=== PATIENT | female | born 1950 | race Caucasian/White ===

== ENCOUNTER 2017-01-27 06:16 | Day surgery (SDC) | payer MEDICARE, OTHER ==
[~2017-01-27] VITALS: Ht 142.2 cm; Wt 67.5 kg
[~2017-01-27 06:16] MED LIST: ALEN70TA48 PO; BENZ1TAB10 PO; DOCU-275 PO; FERR-89 PO; LAMO100 PO; LEVO75 PO; MULT-1192 PO; OMEP20 PO; RISP1 PO; RISP4 PO; TOLT2TAB2 PO
[2017-01-27] MEDS ORDERED: RINGERS SOLUTION,LACTATED 1,000 ML IV ONE ×2 (06:38→07:00)
[2017-01-27] MEDS ORDERED: MIDAZOLAM HCL 5 MG/ML VIAL ONE (07:27)
[2017-01-27] MEDS ORDERED: KETAMINE HCL 50 MG/ML 10 ML VIAL ONE (07:28)
[2017-01-27] MEDS ORDERED: SUCCINYLCHOLINE CHLORIDE 20 MG/ML 10 ML VIAL ONE (07:29)
[2017-01-27 07:52] LABS: BASOPHILS % (AUTO) 0.5 % (0.0-2.0); HEMATOCRIT 35.3 % (36-46); HEMOGLOBIN 11.7 g/dL (12.0-16.0); LYMPHOCYTES % (AUTO) 21.8 % (22.0-44.0); MEAN CORPUSCULAR HEMOGLOBIN 29.3 pg (26.0-34.0); MEAN CORPUSCULAR HGB CONC 33.2 G/dL (31.0-37.0); MEAN CORPUSCULAR VOLUME 88 fL (80-100); MONOCYTES # (AUTO) 0.6 K/uL (0.1-1.0); MONOCYTES % (AUTO) 12.5 % (2.0-9.0); NEUTROPHILS # (AUTO) 2.8 K/uL (1.8-7.7); NEUTROPHILS % (AUTO) 62.2 % (40.0-70.0); PLATELET COUNT (AUTO) 190 K/uL (150-450); RED CELL DISTRIBUTION WIDTH 14.5 % (11.5-14.5); WHITE BLOOD COUNT (AUTO) 4.5 K/uL (4.5-11.0)
[2017-01-27 08:00] LABS: ANION GAP 6 mmol/L (8-16); CALCIUM, TOTAL 8.4 mg/dL (8.8-10.5); CARBON DIOXIDE 27 mmol/L (22-29); CHLORIDE 104 mmol/L (98-107); CREATININE 0.72 mg/dL (0.60-1.30); GLOMERULAR FILTR. RATE CALC > 60 mL/min (>60); POTASSIUM 4.2 mmol/L (3.5-5.1); SODIUM SERUM 137 mmol/L (136-145); UREA NITROGEN, BLOOD 12 mg/dL (7-18)
[2017-01-27 08:03] LABS: PROTHROMBIN TIME 10.7 SEC (9.4-11.6)
[2017-01-27 08:15] LABS: ALANINE AMINOTRANSFERASE 16 U/L (12-78); ALBUMIN 3.2 g/dL (3.4-5.0); ASPARTATE AMINOTRANSFERASE 16 U/L (15-37); BILIRUBIN,TOTAL 0.4 mg/dL (0.1-1.0); CHOL/HDL RATIO 2.9 (3.9-5.7); THYROID STIMULATING HORMONE 0.75 uIU/mL (0.36-3.74); TOTAL PROTEIN, SERUM 6.1 g/dL (6.4-8.2)
[2017-01-27] MEDS ORDERED: LABETALOL HCL 5 MG/ML 20 ML VIAL IVP ONE (11:45)
[2017-01-27] MEDS ORDERED: ONDANSETRON HCL 4 MG/2 ML VIAL IVP ONE (12:00)
[2017-01-27] MEDS ORDERED: DEXAMETHASONE SOD PHOS 4 MG/ML VIAL IVP ONE (12:00)
[2017-01-27] MEDS ORDERED: LIDOCAINE HCL/PF 2% 5 ML VIAL INJ ONE (12:00)
[2017-01-27] MEDS ORDERED: GLYCOPYRROLATE 0.2 MG/ML VIAL IM ONE (12:00)
[2017-01-27] MEDS ORDERED: 0.9% SODIUM CHLORIDE 10 ML VIAL IVP ONE (12:00)
[2017-01-27] MEDS ORDERED: SUCCINYLCHOLINE CHLORIDE 20 MG/ML 10 ML VIAL IVP ONE (12:00)
[2017-01-27] MEDS ORDERED: PROPOFOL 1% 20 ML VIAL IVP ONE (12:00)
== END 2017-01-27 12:35 | disposition home or self-care (01) ==
LOC: SURGERY 06:16
PROVIDERS: ATTEND Dentist General Practice
DX: K05.6 Periodontal disease, unspecified (principal); F79 Unspecified intellectual disabilities; K21.9 Gastro-esophageal reflux disease without esophagitis; M81.0 Age-related osteoporosis without current pathological fracture; E55.9 Vitamin D deficiency, unspecified; E03.9 Hypothyroidism, unspecified; F20.9 Schizophrenia, unspecified; M19.90 Unspecified osteoarthritis, unspecified site; E66.9 Obesity, unspecified; Z88.8 Allergy status to other drugs, medicaments and biological substances; Z79.01 Long term (current) use of anticoagulants
CPT/HCPCS: 36415; 41899; 71010; 80053; 80061; 82652; 84443; 85025; 85610; 85730; 93005; J0330; J1100; J2250; J2405; J2704; J3490 ×3; J7120

== ENCOUNTER 2018-08-17 06:13 | Day surgery (SDC) | payer OTHER, MEDICARE ==
[~2018-08-17] VITALS: Ht 154.9 cm; Wt 66.4 kg
[~2018-08-17 06:13] MED LIST changes: +ALEN70TA10 PO; -ALEN70TA48 PO; +RINGERS SOLUTION,LACTATED 1,000 ML IV ONE
[2018-08-17] MEDS ORDERED: ONDANSETRON HCL 4 MG/2 ML VIAL IVP ONE (06:14)
[2018-08-17] MEDS ORDERED: MIDAZOLAM HCL 2 MG/2 ML VIAL IVP ONE (06:14)
[2018-08-17] MEDS ORDERED: LIDOCAINE/PF 2% 5 ML VIAL IM ONE (06:14)
[2018-08-17] MEDS ORDERED: ROCURONIUM BROMIDE 10 MG/ML 5 ML VIAL IVP ONE (06:14)
[2018-08-17] MEDS ORDERED: DEXAMETHASONE SOD PHOS 4 MG/ML VIAL IVP ONE (06:14)
[2018-08-17] MEDS ORDERED: PROPOFOL 1% 20 ML VIAL IVP ONE (06:14)
[2018-08-17] MEDS ORDERED: GLYCOPYRROLATE 0.2 MG/ML VIAL IM ONE (06:14)
[2018-08-17] MEDS ORDERED: NEOSTIGMINE METHYLSULFATE 1 MG/ML 10 ML VIAL IVP ONE (06:14)
[2018-08-17] MEDS ORDERED: FentaNYL CITRATE-PF 100 MCG/2 ML VIAL IVP ONE (06:14)
[2018-08-17] MEDS ORDERED: RINGERS SOLUTION,LACTATED 1,000 ML IV ONE (07:00)
[2018-08-17] MEDS ORDERED: DOCU-275 PO (07:36)
[2018-08-17] MEDS ORDERED: BENZ1TAB10 PO (07:36)
[2018-08-17] MEDS ORDERED: DIAZ10 PO (07:36)
[2018-08-17] MEDS ORDERED: LORA2TAB2 PO (07:36)
[2018-08-17] MEDS ORDERED: RISP4 PO (07:36)
[2018-08-17] MEDS ORDERED: TOLT2TAB2 PO (07:36)
[2018-08-17] MEDS ORDERED: OMEP20 PO (07:36)
[2018-08-17] MEDS ORDERED: LAMO100 PO (07:36)
[2018-08-17] MEDS ORDERED: RISP2 PO (07:36)
[2018-08-17] MEDS ORDERED: FERR-89 PO (07:36)
[2018-08-17 08:12] LABS: BASOPHILS % (AUTO) 1.1 % (0.0-2.0); EOSINOPHILS % (AUTO) 1.9 % (1.0-6.0); HEMATOCRIT 35.9 % (36-46); LYMPHOCYTES # (AUTO) 1.2 K/uL (1.0-4.8); LYMPHOCYTES % (AUTO) 25.5 % (22.0-44.0); MEAN CORPUSCULAR HEMOGLOBIN 28.9 pg (26.0-34.0); MEAN CORPUSCULAR HGB CONC 33.4 G/dL (31.0-37.0); MEAN CORPUSCULAR VOLUME 87 fL (80-100); MONOCYTES # (AUTO) 0.6 K/uL (0.1-1.0); MONOCYTES % (AUTO) 13.4 % (2.0-9.0); NEUTROPHILS # (AUTO) 2.7 K/uL (1.8-7.7); NEUTROPHILS % (AUTO) 58.1 % (40.0-70.0); PLATELET COUNT (AUTO) 197 K/uL (150-450); RED BLOOD CELL COUNT(AUTO) 4.15 MIL/uL (4.00-5.20); RED CELL DISTRIBUTION WIDTH 14.2 % (11.5-14.5)
[2018-08-17] MEDS ORDERED: KETAMINE HCL 50 MG/ML 10 ML VIAL ONE (08:12)
[2018-08-17 08:25] LABS: ANION GAP 6 mmol/L (8-16); CALCIUM, TOTAL 8.9 mg/dL (8.8-10.5); CARBON DIOXIDE 28 mmol/L (22-29); CHLORIDE 104 mmol/L (98-107); CREATININE 0.72 mg/dL (0.60-1.30); GLOMERULAR FILTR. RATE CALC > 60 mL/min (>60); GLUCOSE,RANDOM 90 mg/dL (70-110); POTASSIUM 4.5 mmol/L (3.5-5.1); SODIUM SERUM 138 mmol/L (136-145); UREA NITROGEN, BLOOD 8 mg/dL (7-18)
[2018-08-17 08:29] LABS: PROTHROMBIN TIME 10.3 SEC (9.4-11.6)
[2018-08-17 08:36] LABS: ALANINE AMINOTRANSFERASE 18 U/L (12-78); ALBUMIN 3.5 g/dL (3.4-5.0); ALKALINE PHOSPHATASE 90 U/L (46-116); ASPARTATE AMINOTRANSFERASE 24 U/L (15-37); BILIRUBIN,TOTAL 0.4 mg/dL (0.1-1.0); FREE T4 (FREE THYROXINE) 1.47 ng/dL (0.76-1.46); THYROID STIMULATING HORMONE 1.35 uIU/mL (0.36-3.74); TOTAL PROTEIN, SERUM 6.3 g/dL (6.4-8.2)
[2018-08-17] MEDS ORDERED: AMPICILLIN SODIUM 1 GM/VIAL ONE (10:07)
[2018-08-17] MEDS ORDERED: HYDROmorphone 2 MG/ML SYRINGE IVP PRN (11:45)
== END 2018-08-17 13:45 | disposition home or self-care (01) ==
LOC: SURGERY 06:13
PROVIDERS: ATTEND Dentist General Practice
DX: K05.30 Chronic periodontitis, unspecified (principal); K21.9 Gastro-esophageal reflux disease without esophagitis; E03.9 Hypothyroidism, unspecified; Z88.8 Allergy status to other drugs, medicaments and biological substances; I10 Essential (primary) hypertension; Z79.899 Other long term (current) drug therapy
CPT/HCPCS: 36415; 41899; 71045; 80053; 84439; 84443; 85025; 85610; 85730; 93005; J0290; J1100; J2250; J2405; J2704; J3010; J3490 ×4; J7120